=== PATIENT | female | born 1995 | race African-American/Black ===

== ENCOUNTER 2019-03-18 16:33 | Emergency (ER) | payer MEDICAID ==
[~2019-03-18] VITALS: Ht 162.6 cm; Wt 82.0 kg
[2019-03-18 20:32] VITALS: BP 121/79
== END 2019-03-18 20:33 | disposition home or self-care (01) ==
LOC: ER 17:16
DX: J06.9 Acute upper respiratory infection, unspecified (principal); Z88.0 Allergy status to penicillin
CPT/HCPCS: 99283